=== PATIENT | male | born 1960 | race African-American/Black ===

== ENCOUNTER 2023-11-05 11:07 | Outpatient (CLI) | payer OTHER | END 2023-11-05 11:08 | disposition home or self-care (01) | LOC: NAV RAD 11:07 | PROVIDERS: ATTEND Family Medicine | DX: R20.0 Anesthesia of skin (principal); G95.19 Other vascular myelopathies; M47.816 Spondylosis without myelopathy or radiculopathy, lumbar region | CPT/HCPCS: 72100 ==